=== PATIENT | male | born 1985 | race Caucasian/White ===

== ENCOUNTER 2019-01-22 11:04 | Inpatient (IN) | payer OTHER ==
[~2019-01-22] VITALS: Ht 180.3 cm; Wt 76.3 kg
--- NOTE | ~2019-01-22 | EKG ---
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
[2019-01-22 11:55] VITALS: BP 133/73; BP 146/78
--- NOTE | 2019-01-22 11:55 | NUR ---
A 33, admitted to , under the services of CARL Recio DO with a diagnosis of OPIATE WITHDRAWAL. Chief complaint is USING HEROIN AND CRACK. Patient arrived via ambulatory from [place]. Monitor applied. Initial assessment completed. Vital signs taken and recorded. See assessment for past medical history, medications and allergies. Patient and/or family oriented to unit. [facility] visitation policy reviewed. WILDA BOB
--- NOTE | 2019-01-22 12:07 | NUR ---
PATIENT MEETS [facility]. CINA=15. PATIENT WANTS TO FOLLOW UP WITH THE VIVITROL SHOT NEAR HIS HOME. [place] STAFF WILL FOLLOW UP WITH REFERRAL OPTIONS. 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
[2019-01-22 12:43] LABS: BASO % 0.3 % (0.0-1.0); EOS % 0.4 % (1.0-4.0); HEMATOCRIT 41.6 % (42.0-52.0); LYMPH # 0.8 10*3/uL (1.3-4.4); LYMPH % 7.4 % (27.0-41.0); MEAN CORPUSCULAR HGB 29.3 pg (27.0-31.0); MEAN CORPUSCULAR HGB CONC 33.7 g/dl (33.0-37.0); MEAN PLATELET VOLUME 10.8 fl (9.6-12.3); MONO # 0.8 10*3/uL (0.1-1.0); MONO % 6.7 % (3.0-9.0); NEUT # 9.5 10*3/uL (2.3-7.9); NEUT % 84.7 % (47.0-73.0); PLATELET COUNT AUTOMATED 95 10*3/uL (130-400); RED BLOOD COUNT 4.78 10*6/uL (4.50-5.90); WHITE BLOOD COUNT 11.2 10*3/uL (4.8-10.8)
[2019-01-22 12:50] LABS: INTERNATIONAL NORM RATIO 1.1 (2.0-3.5)
[2019-01-22 12:56] LABS: ALBUMIN 3.5 gm/dl (3.1-4.5); ALKALINE PHOSPHATASE 144 U/L (45-117); BUN 11 mg/dl (7-24); CHLORIDE 104 mmol/L (98-107); CREATININE 0.79 mg/dL (0.70-1.30); POTASSIUM 3.8 mmol/L (3.5-5.1); SGOT/AST 49 IU/L (3-35); SGPT/ALT 60 U/L (12-78); SODIUM 138 mmol/L (136-145); TOTAL PROTEIN 7.3 gm/dL (6.4-8.2)
[2019-01-22 13:03] LABS: ETHYL ALCOHOL < 3.0 mg/dl (<3)
--- NOTE | 2019-01-22 13:34 | NUR ---
Subutex given at this time per orders. Pt denies complaints. Watching TV.
--- NOTE | 2019-01-22 15:33 | NUR ---
Notified by Riya Ferreira that pt told her he wanted to leave. I went to room and pt states that he wants to leave states he has already called someone to pick him up. I asked pt if there was something he needed and he said no. Just wants to leave. Pt signed AMA paperwork. Pt did not have an IV in, manager monitoring was removed and place in bin at nurses station.
--- NOTE | 2019-01-22 15:35 | NUR ---
Dr. Bacon notified that pt was going to leave AMA.
--- NOTE | 2019-01-22 15:43 | NUR ---
Pt waiting on his ride. States they will be here in 30 minutes.
--- NOTE | 2019-01-22 16:15 | NUR ---
Pt left at this time. LEft with belongings.
== END 2019-01-22 16:15 | disposition left against medical advice (07) | DRG 770 ==
LOC: 4E 11:04
PROVIDERS: Internal Medicine; ADMIT Internal Medicine
DX: F11.23 Opioid dependence with withdrawal (principal); F17.210 Nicotine dependence, cigarettes, uncomplicated; F14.10 Cocaine abuse, uncomplicated; Z86.19 Personal history of other infectious and parasitic diseases; Z71.6 Tobacco abuse counseling